=== PATIENT | male | born 1945 | race Caucasian/White ===

== ENCOUNTER 2020-06-12 13:43 | Inpatient (IN) | payer MEDICARE, BC ==
[~2020-06-12] VITALS: Ht 172.7 cm; Wt 94.0 kg
[2020-06-12] MEDS ORDERED: ALLOPURINOL 30300 M1 PO (14:28)
[2020-06-12] MEDS ORDERED: KEFLEX500 M1 PO (14:32)
[2020-06-12] MEDS ORDERED: MIRALAX119 GM PO (14:36)
[2020-06-12] MEDS ORDERED: ASA81BEC PO (14:36)
[2020-06-12] MEDS ORDERED: NEURONTIN 300M300 M2 PO (14:37)
[2020-06-12] MEDS ORDERED: HYDROCODON-ACE1 EAC7 PO (14:38)
[2020-06-12] MEDS ORDERED: LOPRESSOR50 MG PO (14:39)
[2020-06-12] MEDS ORDERED: MULTI VITAMIN1 EACH PO (14:40)
[2020-06-12] MEDS ORDERED: PRAVASTATIN SOD40 MG PO (14:40)
[2020-06-12] MEDS ORDERED: TAMSULOSIN HCL0.4 MG PO (14:41)
[2020-06-12 17:38] VITALS: BP 95/55
--- NOTE | 2020-06-12 18:10 | NUR ---
PATIENT ADMITTED TO ROOM [address] [facility]. ALERT AND ORIENTED BUT FORGETFUL. FAMILY AT BEDSIDE. SANCHEZ NOTED TO BE DRAINING LIGHT YELLOW URINE, PATIENT WAS INCONTINENT OF A SMALL BM. 3 ABRASIONS/SHEARING NOTED TO SKIN, PHOTO TAKEN PER PROTOCOL. NO DRESSINGS PLACED/NEEDED. PATIENT UP WITH ASSISTANCE OF ONE AND USE OF GAIT BELT. REG DIET. ORIENTED TO UNIT AND CALL LIGHT. FALL RISK PROTOCOL IN PLACE. BED ALARM ON FOR PATIENT SAFETY.
[2020-06-12 19:00] VITALS: BP 124/59
--- NOTE | 2020-06-12 20:00 | NUR ---
RESTING QUIETLY IN BED. SANCHEZ TO DEPENDENT DRAINAGE WITH YELLOW URINE. MAX ASSIST OF 2 TO BEDSIDE COMMODE, GAITBELT, CUEING, STAND, PIVOT. ANNA CARE PERFORMED BY NURSING STAFF. HAD A VERY LARGE FORMED BM. DROOLS WATER TO LEFT SIDE OF MOUTH WHEN DRINKS WATER. OTHERWISE SWALLOWS MEDICATIONS WHOLE WITHOUT DIFFICULTY. CALL LIGHT WITHIN REACH. DENIES DISCOMFORT.
[2020-06-13 04:34] LABS: HEMATOCRIT 24.3 % (42.0-52.0); HEMOGLOBIN 7.9 gm/dL (14.0-18.0); MCH 33.7 pg (26.0-34.0); MCHC 32.5 g/dL (28.0-37.0); MCV 103.8 fL (80.0-100.0); MPV 7.5 fl. (7.2-11.1); RBC 2.34 mil/uL (4.50-6.00); RDW-CV 16.2 % (10.5-14.5)
[2020-06-13 05:01] LABS: CALCIUM 8.7 mg/dL (8.5-10.1); CREATININE 0.8 mg/dL (0.6-1.3); POTASSIUM 4.8 mmol/L (3.5-5.1)
[2020-06-13 05:03] LABS: WBC 49.3 thou/uL (4.0-11.0)
--- NOTE | 2020-06-13 06:14 | NUR ---
SANCHEZ DISCONTINUED PER ORDER. URINAL PROVIDED. AWAKE SINCE ABOUT 0400. STATES NO PAIN JUST UNABLE TO SLEEP. HOURLY ROUNDING IN PROGRESS.
[2020-06-13 07:45] VITALS: BP 119/69
--- NOTE | 2020-06-13 12:11 | NUR ---
Nutrition: Pt admitted to rehab with encephalopathy. H/o CABG, CAD, HTN. MVI. No albumin recorded. Regular diet. Eating well. He does drool from Lt side of mouth at times, but it does not impede his eating. Wt: 200#. Low risk.
--- NOTE | 2020-06-13 15:34 | NUR ---
AM ASSESSMENT AND VITAL SIGNS COMPLETED DOCUMENTED, PT HAS BEEN ALERT AND PLEASANT. PT WORKED WITH PT, OT AND ST, COOPERATIVE AND TOLERATED WELL. PT IS VOIDING WITHOUT DIFFICULTY POST CATHETER REMOVAL. FALL PRECAUTIONS AND HOURLY ROUNDING CONTINUE.
[2020-06-13 19:45] VITALS: BP 109/53
--- NOTE | 2020-06-13 21:00 | NUR ---
ASSUMED PT CARE AT 1930. ASSESSMENT COMPLETED CHARTED. ABLE TO MAKE NEEDS KNOWN. PT RESTING IN BED AT THIS TIME. CHECKED PT BLADDER SCAN AND SHOWED OVER 700. PT HAD NO URGE TO URINATE AND TRIED TO GO EARLIER WITH NO OUTPUT NOTED. NOTIFIED NEW ORDERS GIVEN TO RECHECK BLADDER SCAN IN AM AND STRAIGHT CATH IF OVER 1000ML OR IF PAIN OVERNIGHT. WILL CONTINUE TO MONITOR.
[2020-06-14 07:44] VITALS: BP 128/68
--- NOTE | 2020-06-14 15:32 | NUR ---
1200 ASSUMED CARE OF PATIENT. AGREE WITH AM ASSESSMENT.
--- NOTE | 2020-06-14 15:34 | NUR ---
1400 PATIENT VOIDED 50ML. BLADDER SCAN SHOWED 798ML. STRAIGHT CATH WITHOUT DIFFICULTY WITH RETURN OF 800ML OF SLIGHTLY CLOUDY YELLOW URINE.
--- NOTE | 2020-06-14 15:49 | NUR ---
WOUND NURSE: RECEIVED CONSULT OVER CONCERN PATIENT MAY HAVE LINEAR FISSURE ON COCCYX. PATIENT ASSESSED BY ME AND NO WOUND NOTED. WILL DISCONTINUE WOUND NURSE CONSULT A RESULT.
--- NOTE | 2020-06-14 16:46 | NUR ---
ALERT AND ORIENTED X4. UP WITH 1 ASSIST, GAIT BELT AND WALKER. DENIES NEED FOR PAIN MEDICATION. VOIDED SMALL AMOUNT BUT STILL HAD 798ML ON BLADDER SCAN. STRAIGHT CATH WITHOUT DIFFICULTY WITH RETURN OF 800ML SLIGHTLY CLOUDY YELLOW URINE. USES CALL LIGHT FOR ASSIST. FALL PRECAUTIONS IN PLACE. BED ALARM AND CHAIR ALARM USED.
[2020-06-14 19:30] VITALS: BP 117/65
--- NOTE | 2020-06-14 20:00 | NUR ---
RESTING QUIETLY IN BED AND WATCHING TV. STATES NO URGE TO VOID. DENIES DISCOMFORT. CALL LIGHT WITHIN REACH.
--- NOTE | 2020-06-15 05:17 | NUR ---
RESTED QUIETLY. PATIENT HAS NO URGE TO VOID. STRAIGHT CATH DONE AT 2155 AND 625 ML OF URINE OBTAINED. HOURLY ROUNDING IN PROGRESS.
[2020-06-15 07:30] VITALS: BP 91/52
--- NOTE | 2020-06-15 16:09 | NUR ---
PATIENT COMPLETED THERAPIES ORDERED. UP IN RECLINER, REPOSITIONED NEEDED AND WAFFLE CUSHION IN PLACE. AT BEDSIDE. PATIENT ASSISTED IN STANDING TO TRY AND VOID THIS AM, BLADDER SCAN SHOWING 554MLS. PATIENT UNSUCCESSFUL. STANDINGS ORDERS TO STRAIGHT CATH >400. 500MLS DARK YELLOW URINE NOTED. DR. RIVERA AWARE AND ORDERS TO PLACE SANCHEZ CATHETER. SANCHEZ PLACED THIS AFTERNOON AFTER THERAPY. INCONTINENT OF BM THIS THIS SHIFT. NO COMPLAINTS OF PAIN. UP WITH ASSISTANCE AND USE OF GAIT BELT AND WALKER.
[2020-06-15 20:00] VITALS: BP 118/62
[2020-06-16 07:16] VITALS: BP 104/60
--- NOTE | 2020-06-16 16:17 | NUR ---
INITIAL ASSESSMENT: PATIENT ADMITTED TO [facility] ON 06/12/20 WITH A DIAGNOSIS OF ENCEPHALOPATHY. PATIENT ALERT AND ORIENTED. PT'S AT THE BEDSIDE AND ASSIST WITH ANSWERING ASSESSMENT QUESTIONS. PT NORMALLY INDEPENDENT WITH ADL'S. PT RESIDES AT HOME WITH SPOUSE. PT USES WALKER OR CANE FOR MOBILITY. PT HAS PAST HX OF HH. PT HAS 0 HX OF SNF. PT'S SPOUSE INFORMS THAT HIS PCP IS LEANDRO RIZZO. CM ORIENTED PT AND HIS SPOUSE TO THE REHAB UNIT AND PROCESSES, RESIDENTS RIGHTS INFO, TEAM CONFRENCE, AND TO THE ROLE OF CM. CM WILL REMAIN AVAILABLE TO ASSIST AND FOLLOW NEEDED.
--- NOTE | 2020-06-16 17:24 | NUR ---
ASSESSMENT COMPLETED DOCUMENTED THIS MORNING. PATIENT HAS BEEN UP IN RECLINER AT THE BEDSIDE AND BACK TO BED. NO ISSUES OR CHANGES IN CONDITION NOTED. SANCHEZ CATHETER PATENT AND DRAINING CLEAR DARK YELLOW URINE. AT BEDSIDE FOR THE DAY, SUPPORTIVE R/T RECENT PASSING OF THEIR DAUGHTER.
[2020-06-16 19:00] VITALS: BP 123/54
--- NOTE | 2020-06-17 06:32 | NUR ---
ASSUMED PT CARE AT 1930. ASSESSMENT COMPLETED CHARTED. ABLE TO MAKE NEEDS KNOWN BUT BARELY CALLS OUT. HOURLY ROUNDS COMPLETED CHARTED. NO C/O PAIN OR DISCOMFORT NOTED. RESTING IN BED THROUGHOUT THE NIGHT. SANCHEZ DRAINING YELLOW URINE. WILL CONTINUE TO MONITOR.
[2020-06-17 07:34] VITALS: BP 108/61
--- NOTE | 2020-06-17 17:27 | NUR ---
ASSESSMENT COMPLETED DOCUMENTED THIS MORNING. PATIENT HAS BEEN RESTING QUIETLY IN HIS ROOM WITH HIS AT THE BEDSIDE. HAS HAD NO C/O VOICED OR CHANGES IN CONDITION NOTED TODAY.
[2020-06-17 19:50] VITALS: BP 106/56
[2020-06-18 04:05] LABS: RBC 2.25 mil/uL (4.50-6.00); RDW-CV 15.9 % (10.5-14.5)
[2020-06-18 04:07] LABS: HEMATOCRIT 23.4 % (42.0-52.0); HEMOGLOBIN 7.6 gm/dL (14.0-18.0); MCHC 32.7 g/dL (28.0-37.0); MCV 104.1 fL (80.0-100.0); MPV 7.2 fl. (7.2-11.1); WBC 39.6 thou/uL (4.0-11.0)
[2020-06-18 04:25] LABS: CALCIUM 8.4 mg/dL (8.5-10.1); CREATININE 0.8 mg/dL (0.6-1.3); MAGNESIUM 2.1 mg/dL (1.8-2.4); POTASSIUM 4.5 mmol/L (3.5-5.1)
--- NOTE | 2020-06-18 06:56 | NUR ---
ASSUMED PT CARE AT 1930. ASSESSMENT COMPLETED CHARTED. ABLE TO MAKE NEEDS KNOWN. SANCHEZ DRAINING YELLOW URINE. RESTING IN BED MOST OF THE NIGHT BUT STATED HE DIDNT SLEEP WELL. N/O PAIN OR DISCOMFORT. WILL CONTINUE TO MONITOR.
[2020-06-18 07:30] VITALS: BP 118/63
--- NOTE | 2020-06-18 16:08 | NUR ---
ALERT AND ORIENTED X4. UP WITH 1 ASSIST, GAIT BELT AND WALKER. SANCHEZ CATHETER PATENT WITH CLEAR YELLOW URINE. DR NOTIFIED OF ABNORMAL LABS THIS AM. TAKES PILLS WHOLE WITHOUT DIFFICULTY. USES CALL LIGHT FOR ASSIST. FALL PRECAUTIONS IN PLACE. BED ALARM AND CHAIR ALARM USED.
[2020-06-18 20:00] VITALS: BP 103/54
--- NOTE | 2020-06-18 22:55 | NUR ---
ASSUMED CARE AT 1930. PATIENT RESTING IN RECLINER UNTIL AROUND 1999. UP WITH SBA, GAIT BELT, WALKER TO BED. PANTS REMOVED, BRIEF LEFT ON. ENCOURAGED TO LIE ON SIDE. HELD PM DOSE OF BLOOD PRESSURE MEDS DUE TO BLOOD PRESSUER 103/54. SEE JUL. TURNS SELF. HOURLY ROUNDS CONTINUE. BED ALARM ON. CALL LITE IN REACH.
--- NOTE | 2020-06-19 05:23 | NUR ---
OBSERVED RESTING IN BED WITH EYES CLOSED MOST OF THE NIGHT. SANCHEZ DRAINING CELIO URINE. NO C/O PAIN. TURNS SELF SLIGHTLY SIDE TO SIDE THROUGH NIGHT. HOURLY ROUNDS CONTINUE. BED ALARM ON. CALL LITE IN REACH.
[2020-06-19 08:00] VITALS: BP 114/66
--- NOTE | 2020-06-19 16:05 | NUR ---
PATIENT COMPLETED THERAPIES ORDERED. AT BEDSIDE. ONCOLOGY OFFICE AT [facility] CALLING REGARDING PATIENT MISSED APPOINTMENT, PATIENT AND NOTIFIED. SANCHEZ DRAINING YELLOW URINE. UP WITH ASSISTANCE OF 1, GAIT BELT AND WALKER. INCONTIENT OF BM THIS SHIFT.
[2020-06-19 19:25] VITALS: BP 110/57
--- NOTE | 2020-06-19 19:25 | NUR ---
AWAKENED FOR VITAL SIGNS AND REASSESSMENT. DENIES DISCOMFORT. CALL LIGHT WITHIN REACH. SNACK PROVIDED.
[2020-06-20 04:45] LABS: HEMATOCRIT 23.5 % (42.0-52.0); HEMOGLOBIN 7.7 gm/dL (14.0-18.0); MCH 33.8 pg (26.0-34.0); MCHC 32.5 g/dL (28.0-37.0); MPV 7.9 fl. (7.2-11.1); RBC 2.26 mil/uL (4.50-6.00); RDW-CV 16.1 % (10.5-14.5); WBC 39.8 thou/uL (4.0-11.0)
--- NOTE | 2020-06-20 05:01 | NUR ---
RESTED QUIETLY. SANCHEZ TO DEPENDENT DRAINAGE WITH CLEAR/YELLOW URINE. HOURLY ROUNDING IN PROGRESS.
[2020-06-20 05:08] LABS: CALCIUM 8.5 mg/dL (8.5-10.1); CREATININE 0.9 mg/dL (0.6-1.3); POTASSIUM 4.3 mmol/L (3.5-5.1)
[2020-06-20 07:30] VITALS: BP 112/61
--- NOTE | 2020-06-20 15:53 | NUR ---
TEAM [employer]ENCE MEETING HELD TODAY. CM AND PHYSICIAN INFORMED PT AND SPOUSE OF THE MEETING AND PLAN TO HAVE PT BE MOD-I TOMORROW IN THE ROOM AND D/C HOME WITH HH ON THURSDAY. PT AND SPOUSE IN AGREEMENT WITH THE PLAN. PT'S SPOUSE INFORMS THAT SHE WILL NEED TO CHECK AT HOME ABOUT WHICH HH SHE WOULD LIKE TO USE. PT HAS NEEDED DME AT HOME. CM WILL REMAIN AVAILABLE TO ASSIST AND FOLLOW NEEDED.
--- NOTE | 2020-06-20 16:04 | NUR ---
PATIENT COMPLETED THERAPIES ORDERED THIS SHIFT. SANCHEZ DRAINING YELLOW URINE. UP WITH ASSISTANCE OF 1, GAIT BELT AND WALKER. PATIENT TO BE MOD-I TOMORROW AND WILL CHANGE TO LEG BAG. AT BEDSIDE. ANTICIPATING DISCHARGE THURSDAY.
[2020-06-20 20:16] VITALS: BP 92/55
--- NOTE | 2020-06-20 23:17 | NUR ---
ASSUMED CARE AT 1930. PATIENT RESTING IN BED. SANCHEZ DRAINING CELIO URINE. TURNS SELF. MOISTURE BARRIER APPLIED TO SACRAL AREA. SKIN INTACT. TAKES PILLS WHOLE WITH WATER. NO C/O PAIN. HOURLY ROUNDS CONTINUE. BED ALARM ON. CALL LITE IN REACH.
--- NOTE | 2020-06-21 05:59 | NUR ---
SLEPT MOST OF THE SHIFT. NO C/O OFFERED. SANCHEZ DRAINING CELIO URINE. HOURLY ROUNDS CONTINUE. BED ALARM ON. CALL LITE IN REACH.
[2020-06-21 07:30] VITALS: BP 93/50
--- NOTE | 2020-06-21 13:42 | NUR ---
PATIENTS HERE THIS AFTERNOON, UPDATED ON PLAN OF CARE. PATIENT AND BOTH EDUCATED ON LEG BAG FOR SANCHEZ AND HOW TO DO SANCHEZ CARE, VRBALIZE UNDERSTANDING.
--- NOTE | 2020-06-21 16:02 | NUR ---
PATIENT COMPLETED THEARAPIES ORDERED. AT BEDSIDE. PATIENT ASSISTED WITH DRESSING THIS AM PRIOR TO THERAPY. UP WITH SBA AND USE OF GAIT BELT AND CANE. GOOD APPETITE. BM NOTED THIS SHIFT. DISCHARGE TO HOME WITH HOME HEALTH TOMORROW.
[2020-06-21 19:20] VITALS: BP 119/63
[2020-06-22 07:45] VITALS: BP 120/65
[2020-06-22] MEDS ORDERED: PRAVASTATIN SOD40 MG PO (09:18)
[2020-06-22] MEDS ORDERED: ALLOPURINOL 30300 M1 PO (09:18)
[2020-06-22] MEDS ORDERED: ASA81BEC PO (09:18)
[2020-06-22] MEDS ORDERED: MIRALAX119 GM PO (09:18)
[2020-06-22] MEDS ORDERED: MULTI VITAMIN1 EACH PO (09:18)
[2020-06-22] MEDS ORDERED: NEURONTIN 300M300 M2 PO (09:18)
[2020-06-22] MEDS ORDERED: METOPROLOL TART25 MG PO (09:18)
[2020-06-22] MEDS ORDERED: TAMSULOSIN HCL0.4 MG PO (09:18)
[2020-06-22] MEDS ORDERED: HYDROCODON-ACE1 EAC7 PO (09:18)
[2020-06-22 11:10] VITALS: BP 120/65
[2020-06-22 11:22] VITALS: BP 120/65
--- NOTE | 2020-06-22 11:43 | NUR ---
CM SPOKE TO THE PT AND SPOUSE TO DISCUSS DISCHARGE PLANNING AND HIS D/C HOME TODAY WITH HH. PT ANS SPOUSE IN AGREEMENT [facility] CM FAXED PT'S D/C ORDERS TO [facility] AND THEY WILL CONTACT THE PT TO ARRANGE A TIME TO VISIST. PT HAS ALL NEEDED DME AT HOME. CM WILL REMAIN AVAILABLE TO ASSIST AND FOLLOW NEEDED. [place] PHONE: [phone] FAX: [phone]
--- NOTE | 2020-06-22 14:03 | NUR ---
PATIENT AND VERBALIZED UNDERSTANDING OF DISCHARGE INSTRUCTIONS. THEY WERE INSTRUCTED ON LEG BAG AND SANCHEZ BAG CARE AND STATED THEY HAD NO MORE QUESTIONS. UP WITH STAND BY ASSIST, GAIT BELT AND CANE. DENIES NEED FOR PAIN MEDICATION. LEFT FAMILY VIA FAMILY CARE IN NO DISTRESS.
== END 2020-06-22 13:30 | disposition home health service (06) | DRG 92 ==
LOC: M.REH 13:43
PROVIDERS: Internal Medicine; ADMIT Physical Medicine & Rehabilitation; ATTEND Physical Medicine & Rehabilitation
DX: G92 Toxic encephalopathy (principal); N39.0 Urinary tract infection, site not specified; C91.10 Chronic lymphocytic leukemia of B-cell type not having achieved remission; N40.1 Benign prostatic hyperplasia with lower urinary tract symptoms; R33.8 Other retention of urine; I25.10 Atherosclerotic heart disease of native coronary artery without angina pectoris; I10 Essential (primary) hypertension; Z95.1 Presence of aortocoronary bypass graft; K59.00 Constipation, unspecified; E53.8 Deficiency of other specified B group vitamins; D64.9 Anemia, unspecified; F43.9 Reaction to severe stress, unspecified; Z79.82 Long term (current) use of aspirin; E78.5 Hyperlipidemia, unspecified; Z79.899 Other long term (current) drug therapy